=== PATIENT | female | born 1975 | race Caucasian/White ===

== ENCOUNTER → 2024-06-09 10:45 | Outpatient (REF) | payer BC, SELFPAY | LOC: RAD 10:45 | PROVIDERS: ATTENDING PHYSICIAN Obstetrics & Gynecology; FAMILY PHYSICIAN Nurse Practitioner | DX: N91.2 Amenorrhea, unspecified (principal); Z30.431 Encounter for routine checking of intrauterine contraceptive device | CPT/HCPCS: 76830; 76856 ==